=== PATIENT | female | born 1940 | race Caucasian/White ===

== ENCOUNTER 2016-10-27 21:04 | Emergency (ER) | payer MEDICARE ==
--- NOTE | 2016-10-27 21:35 | ED Physician Chart ---
Chief Complaint/HPI - Patient Information Date Seen:: 10/27/16 Time Seen:: 21:20 Chief Complaint:: swelling, pain L wrist after fall History of Present Illness:: Pt. was gardening and fell backwards. Landed in sitting position with hands behind her. Subsequently developed L wrist/hand swelling. No head or other injury. The cause of the fall was that the pt. cut a branch which pushed her down. No syncope or head injury. Historian:: Patient Review of Systems - Review of Systems General/Constitutional: No fever Skin: No skin lesions Head: No headache ENT: No earache, No sore throat Neck: No neck pain Cardio Vascular: No chest pain, No palpitations Pulmonary: No SOB, No cough GI: No vomiting G/U: No dysuria Musculoskeletal: Bone or joint pain Psychiatric: No prior psych history Neurological: No focal symptoms Past Medical History - Past Medical History Past Medical History: HTN, Thyroid disorder Family History: None Social History: Non Smoker, No Alcohol Surgical History: None Medication: None Medication Reviewed:: Pt. states her doctor is aware of HTN. She has never accepted meds and does not do so now. She also states her last thyroid test was normal. Physical Exam - Physical Examination General/Constitutional: Awake, Well-developed, well-nourished, Alert, No distress, GCS 15, Non-toxic appearing, Ambulatory Head: Atraumatic Eyes: Lids, conjuctiva normal, PERRL, EOMI Skin: No rash ENMT: TM canals nl Neck: Nontender, Full ROM w/o pain Respiratory: Nl effort/Exclusion, Clear to Auscultation, No Wheeze/Rhonchi/Rales Cardio Vascular: RRR, No murmur, gallop, rubs GI: No tenderness/rebounding/guarding Other Extremities comments:: swelling lat aspect, distal radius Neuro/Psych: Alert/oriented, No focal deficits Labs/Radiology/EKG Results - Lab Results Results: X-ray shows non-displaced distal radial fx. Pt. advised to f/u with PCP or orthopedist next week. We will splint & sling and provide analgesia. ED Septic Shock - . Is Septic Shock (SBP<90, OR Lactate>4 mmol\L) present?: No Reassessment (Disposition) - Diagnosis Diagnosis:: Dx: Acute Non-displaced fx of distal radius. - Aftercare/Follow up Instructions Aftercare/Follow-Up Instructions:: Counseled pt & family regarding lab results/ diagnosis & need follow up Notes:: Maintain splint & sling. Medication Prescribed:: Rx: Speer 5/325 one po q4h prn. No driving. Disp. #20. No refill. - Patient Disposition Discharge/Transfer:: Home Condition at Disposition:: Stable ED Discharge Plan - Patient Disposition Admit/Discharge/Transfer: PT DISCHARGED HOME Condition at Disposition: Stable
[2016-10-27] MEDS ORDERED: Hydrocodone/APAP 5mg/325mg Tab PO ONE (22:36)
[2016-10-27] MEDS ORDERED: Hydrocodone/APAP 5mg/325mg Tab ONE (22:43)
--- NOTE | 2016-10-28 09:55 | Diagnostic Imaging Report ---
Exam: Left hand HISTORY: Swelling Findings: Portable examination of the left hand 2145 hours reviewed the study demonstrates no evidence for acute fracture dislocation. Degenerative osteopenic changes superimposed osteopenia noted. IMPRESSION: Degenerative changes left hand
--- NOTE | 2016-10-28 10:05 | Diagnostic Imaging Report ---
Exam: Except left wrist. HISTORY: Swelling Findings: Multiple views of left wrist were reviewed. The study demonstrates minimally displaced fracture of the lateral aspect of distal left radius extending into the radiocarpal joint space. The carpal bones are intact. Soft tissue swelling is noted. IMPRESSION minimally displaced fracture lateral aspect distal left radius. Critical report message was generated.
== END 2016-10-27 22:53 | disposition home or self-care (01) ==
LOC: ER 21:04
DX: S52.92XA Unspecified fracture of left forearm, initial encounter for closed fracture (principal); I10 Essential (primary) hypertension; E07.9 Disorder of thyroid, unspecified; W19.XXXA Unspecified fall, initial encounter; Y93.H2 Activity, gardening and landscaping; Y92.89 Other specified places as the place of occurrence of the external cause; Y99.8 Other external cause status
CPT/HCPCS: 73110-TC-LT; 73130-TC-LT; Z7502